=== PATIENT | female | born 1960 | race Hispanic/Latino ===

== ENCOUNTER 2016-08-29 16:49 | Emergency (ER) | payer SELFPAY ==
[2016-08-29 17:05] VITALS: BP 130/79
== END 2016-08-29 19:21 | disposition left against medical advice (07) ==
LOC: ED 16:49
DX: R11.10 Vomiting, unspecified (principal); Z53.21 Procedure and treatment not carried out due to patient leaving prior to being seen by health care provider

== ENCOUNTER 2017-02-19 09:19 | Outpatient (CLI) | payer OTHER ==
[2017-02-19] MEDS ORDERED: PROVENTIL IH ONE (09:26)
== END 2017-02-19 09:20 | disposition home or self-care (01) ==
LOC: PF 09:19
PROVIDERS: ATTEND Internal Medicine
DX: J44.9 Chronic obstructive pulmonary disease, unspecified (principal); I10 Essential (primary) hypertension; M51.36 Other intervertebral disc degeneration, lumbar region; F41.9 Anxiety disorder, unspecified; F32.9 Major depressive disorder, single episode, unspecified; R58 Hemorrhage, not elsewhere classified; F17.200 Nicotine dependence, unspecified, uncomplicated
CPT/HCPCS: 94060; 94640; 94729

== ENCOUNTER 2018-01-31 15:09 | Emergency (ER) | payer SELFPAY ==
--- NOTE | 2018-01-31 19:00 | Emergency Department Report ---
ED Extremity Problem HPI - General Chief complaint: Extremity Problem,Nontraumatic Stated complaint: RIGHT TOES SWELLING Time Seen by Provider: 01/31/18 18:55 Source: patient Mode of arrival: Ambulatory Limitations: No Limitations - History of Present Illness Initial comments: Patient is a 57-year-old female who is presenting with pain in her right toes. Patient states she has a history of a "blood clot". Patient has a history of taking Plavix but cannot afford it has been taking 81 mg aspirin a day. Patient states the pain in the right toes have been for approximately one week has been constant throbbing and a 6 out of 10 in severity. Patient denies any trauma. Patient seen a vascular surgeon in the past was not had surgery. - Related Data Home Medications Medication Instructions Recorded Confirmed Last Taken Citalopram [Celexa] 20 mg PO QDAY 05/15/13 12/25/13 12/25/13 Lisinopril/Hydrochlorothiazide 10 - 12.5 mg PO DAILY 05/15/13 12/25/13 12/25/13 [Zestoretic 10-12.5 mg] amLODIPine [Norvasc] 5 mg PO DAILY 05/15/13 12/25/13 12/25/13 ALPRAZolam [Xanax] 1 mg PO QHS 12/25/13 12/25/13 12/24/13 Albuterol Sulfate [Ventolin HFA] 2 puff IH Q4H PRN 12/25/13 12/25/13 12/25/13 Fluticasone/Salmeterol [Advair 1 puff IH DAILY 12/25/13 12/25/13 12/25/13 Diskus 250-50 mcg] Previous Rx's Medication Instructions Recorded Last Taken Type HYDROcodone/APAP 7.5-325 [[place] 1 each PO Q8HR PRN #20 tablet 08/08/13 12/25/13 Rx 7.5-325 mg TAB] traMADol [Ultram] 50 mg PO Q4HR PRN #20 tablet 12/25/13 Unknown Rx Prednisone [Prednisone 10 mg 10 mg PO .TAPER #1 tab.ds.pk 05/18/14 Unknown Rx (6-Day Pack, 21 Tabs)] Oxycodone HCl/Acetaminophen 1 each PO Q6HR PRN #7 tablet 08/11/14 Unknown Rx [Percocet 10-325 mg] Sulfamethoxazole/Trimethoprim 1 each PO BID #14 tablet 11/18/14 Unknown Rx [Bactrim Ds] hydrOXYzine HCL [Atarax] 25 mg PO Q6HR PRN #30 tablet 11/18/14 Unknown Rx methylPREDNISolone [Medrol Dose 8 mg PO QAM #1 tab.ds.pk 11/18/14 Unknown Rx Jose Alberto] traMADol [Ultram] 50 mg PO Q6HR PRN #12 tablet 01/31/18 Unknown Rx Allergies Allergy/AdvReac Type Severity Reaction Status Date / Time Penicillins Allergy Rash Verified 02/19/17 09:30 ED Review of Systems ROS: Stated complaint: RIGHT TOES SWELLING Other details as noted in HPI Comment: All other systems reviewed and negative ED Past Medical Hx - Past Medical History Hx Hypertension: Yes Hx Arthritis: Yes Hx Psychiatric Treatment: Yes (depression anxiety) Hx COPD: Yes Additional medical history: DDD. CHRONIC BRONCHITIS - Surgical History Hx Cholecystectomy: Yes Additional Surgical History: tubal ligation. arteriogram - Social History Smoking Status: Current Every Day Smoker - Medications Home Medications: Home Medications Medication Instructions Recorded Confirmed Last Taken Type Citalopram [Celexa] 20 mg PO QDAY 05/15/13 12/25/13 12/25/13 History Lisinopril/Hydrochlorothiazide 10 - 12.5 mg PO DAILY 05/15/13 12/25/13 12/25/13 History [Zestoretic 10-12.5 mg] amLODIPine [Norvasc] 5 mg PO DAILY 05/15/13 12/25/13 12/25/13 History HYDROcodone/APAP 7.5-325 [[place] 1 each PO Q8HR PRN #20 tablet 08/08/13 12/25/13 12/25/13 Rx 7.5-325 mg TAB] ALPRAZolam [Xanax] 1 mg PO QHS 12/25/13 12/25/13 12/24/13 History Albuterol Sulfate [Ventolin HFA] 2 puff IH Q4H PRN 12/25/13 12/25/13 12/25/13 History Fluticasone/Salmeterol [Advair 1 puff IH DAILY 12/25/13 12/25/13 12/25/13 History Diskus 250-50 mcg] traMADol [Ultram] 50 mg PO Q4HR PRN #20 tablet 12/25/13 Unknown Rx Prednisone [Prednisone 10 mg 10 mg PO .TAPER #1 tab.ds.pk 05/18/14 Unknown Rx (6-Day Pack, 21 Tabs)] Oxycodone HCl/Acetaminophen 1 each PO Q6HR PRN #7 tablet 08/11/14 Unknown Rx [Percocet 10-325 mg] Sulfamethoxazole/Trimethoprim 1 each PO BID #14 tablet 11/18/14 Unknown Rx [Bactrim Ds] hydrOXYzine HCL [Atarax] 25 mg PO Q6HR PRN #30 tablet 11/18/14 Unknown Rx methylPREDNISolone [Medrol Dose 8 mg PO QAM #1 tab.ds.pk 11/18/14 Unknown Rx Jose Alberto] traMADol [Ultram] 50 mg PO Q6HR PRN #12 tablet 01/31/18 Unknown Rx ED Physical Exam - General Limitations: No Limitations General appearance: alert, in no apparent distress - Head Head exam: Present: atraumatic, normocephalic - Eye Eye exam: Present: normal appearance - ENT ENT exam: Present: mucous membranes moist - Neck Neck exam: Present: normal inspection - Respiratory Respiratory exam: Present: normal lung sounds bilaterally. Absent: respiratory distress - Cardiovascular Cardiovascular Exam: Present: regular rate, normal rhythm. Absent: systolic murmur, diastolic murmur, rubs, gallop - GI/Abdominal GI/Abdominal exam: Present: soft, normal bowel sounds - Extremities Exam Extremities exam: Present: normal inspection, other (his bilateral toes show some small microvascular petechiae very mild on the dorsum of the bilateral distal foot and toes. The right small toe has a area of ecchymosis that is small and is tender consistent with a bruise. Patient has less than 2 second capillary refill. The dorsalis pedis pulse is present bilaterally. Patient's feet are warm and dry and not swollen.) - Back Exam Back exam: Present: normal inspection - Neurological Exam Neurological exam: Present: alert, oriented X3 - Psychiatric Psychiatric exam: Present: normal affect, normal mood - Skin Skin exam: Present: warm, dry, intact, normal color. Absent: rash ED Course Vital Signs 01/31/18 15:14 Pulse Rate 72 Respiratory 18 Rate Blood Pressure 122/72 O2 Sat by Pulse 95 Oximetry ED Medical Decision Making - Medical Decision Making Patient does appear to have some type of possible vascular condition however no major occlusion is suspected C she has bilateral palpable pulses in her bilateral feet are warm and the patient also has good capillary refill even in the area of the bruise on the right small toe. Patient is safe to follow up with vascular surgeon as an outpatient and will be discharged home with pain management. Critical care attestation.: If time is entered above; I have spent that time in minutes in the direct care of this critically ill patient, excluding procedure time. ED Disposition Clinical Impression: Toe pain Qualifiers: Laterality: right Qualified Code(s): M79.674 - Pain in right toe(s) Disposition: TO HOME OR SELFCARE Is pt being admited?: No Does the pt Need Aspirin: No Condition: Stable Additional Instructions: Patient please follow-up with vascular surgery. No major occlusive arterial disease is suspected today's seizure foot is warm with good pulses and good capillary refill. Also please take a full dose 325 mg aspirin daily Referrals: KEI HUERTA MD [Staff Physician] - 3-5 Days Time of Disposition: 19:01
[2018-01-31 19:23] VITALS: BP 124/75
== END 2018-01-31 19:22 | disposition home or self-care (01) ==
LOC: ED 15:09
DX: M79.674 Pain in right toe(s) (principal); I10 Essential (primary) hypertension; M19.90 Unspecified osteoarthritis, unspecified site; F41.9 Anxiety disorder, unspecified; J44.9 Chronic obstructive pulmonary disease, unspecified; F17.200 Nicotine dependence, unspecified, uncomplicated; Z98.51 Tubal ligation status; Z88.0 Allergy status to penicillin
CPT/HCPCS: 99282

== ENCOUNTER 2018-09-04 09:16 | Emergency (ER) | payer SELFPAY ==
[2018-09-04 09:25] VITALS: BP 110/71
[2018-09-04] MEDS ORDERED: DELTASONE PO ONE (09:30)
[2018-09-04] MEDS ORDERED: ATROVENT IH ONE (09:30)
[2018-09-04] MEDS ORDERED: PROVENTIL IH ONE (09:30)
--- NOTE | 2018-09-04 10:20 | Emergency Department Report ---
ED Shortness of Breath HPI - General Chief Complaint: Dyspnea/Respdistress Stated Complaint: SOB Time Seen by Provider: 09/04/18 09:30 Source: patient Mode of arrival: Ambulatory Limitations: No Limitations - History of Present Illness Initial Comments: Patient is a 58-year-old female with past history of COPD who is presenting with shortness of breath for the past 3-4 days. Patient states she is running out of her albuterol inhaler. Patient has a cough productive of clear sputum. Patient states that she has been wheezing and short of breath. Patient denies any nausea vomiting fevers chills at this time. - Related Data Home Medications Medication Instructions Recorded Confirmed Last Taken amLODIPine [Norvasc] 5 mg PO DAILY 05/15/13 06/24/18 06/19/18 Aspirin EC [Aspirin Enteric Coated 81 mg PO QDAY 06/19/18 06/24/18 06/19/18 TAB] Oxycodone HCl/Acetaminophen 10 mg PO Q6HR PRN 06/19/18 06/24/18 06/19/18 [Percocet 10/325 mg] Citalopram Hydrobromide [Celexa] 40 mg PO DAILY 06/24/18 06/24/18 Unknown Clopidogrel [Plavix] 75 mg PO QDAY 06/24/18 06/24/18 Unknown Celexa 40 mg PO QDAY 06/25/18 06/25/18 Unknown Previous Rx's Medication Instructions Recorded Last Taken Type Ciprofloxacin HCl [Ciprofloxacin 500 mg PO Q12H #12 tab 06/19/18 Unknown Rx TAB] Ipratropium [Atrovent NEB] 0.5 mg IH Q8HRT #1 box 06/19/18 Unknown Rx ALPRAZolam [Xanax TAB] 2 mg PO QHS tablet 06/26/18 Unknown Rx metroNIDAZOLE [Flagyl TAB] 500 mg PO Q8HR #20 tablet 06/26/18 Unknown Rx ALBUTEROL NEB's [Proventil 0.083% 2.5 mg IH TID PRN #1 box 09/04/18 Unknown Rx NEBS] Prednisone [predniSONE 5 mg (6-Day 5 mg PO .TAPER #1 tab.ds.pk 09/04/18 Unknown Rx Pack, 21 Tabs)] traMADol [Ultram] 50 mg PO Q6HR PRN #12 tablet 09/04/18 Unknown Rx Allergies Allergy/AdvReac Type Severity Reaction Status Date / Time Penicillins Allergy Rash Verified 09/04/18 09:23 ED Review of Systems ROS: Stated complaint: SOB Other details as noted in HPI Comment: All other systems reviewed and negative ED Past Medical Hx - Past Medical History Hx Hypertension: Yes Hx Congestive Heart Failure: No Hx Diabetes: No Hx Arthritis: Yes Hx Psychiatric Treatment: Yes (depression anxiety) Hx Asthma: No Hx COPD: Yes Additional medical history: DDD. CHRONIC BRONCHITIS. blood clots - Surgical History Hx Cholecystectomy: Yes Additional Surgical History: tubal ligation. arteriogram - Social History Smoking Status: Current Every Day Smoker Substance Use Type: Other - Medications Home Medications: Home Medications Medication Instructions Recorded Confirmed Last Taken Type amLODIPine [Norvasc] 5 mg PO DAILY 05/15/13 06/24/18 06/19/18 History Aspirin EC [Aspirin Enteric Coated 81 mg PO QDAY 06/19/18 06/24/18 06/19/18 History TAB] Ciprofloxacin HCl [Ciprofloxacin 500 mg PO Q12H #12 tab 06/19/18 06/24/18 Unknown Rx TAB] Ipratropium [Atrovent NEB] 0.5 mg IH Q8HRT #1 box 06/19/18 06/24/18 Unknown Rx Oxycodone HCl/Acetaminophen 10 mg PO Q6HR PRN 06/19/18 06/24/18 06/19/18 History [Percocet 10/325 mg] Citalopram Hydrobromide [Celexa] 40 mg PO DAILY 06/24/18 06/24/18 Unknown History Clopidogrel [Plavix] 75 mg PO QDAY 06/24/18 06/24/18 Unknown History Celexa 40 mg PO QDAY 06/25/18 06/25/18 Unknown History ALPRAZolam [Xanax TAB] 2 mg PO QHS tablet 06/26/18 Unknown Rx metroNIDAZOLE [Flagyl TAB] 500 mg PO Q8HR #20 tablet 06/26/18 Unknown Rx ALBUTEROL NEB's [Proventil 0.083% 2.5 mg IH TID PRN #1 box 09/04/18 Unknown Rx NEBS] Prednisone [predniSONE 5 mg (6-Day 5 mg PO .TAPER #1 tab.ds.pk 09/04/18 Unknown Rx Pack, 21 Tabs)] traMADol [Ultram] 50 mg PO Q6HR PRN #12 tablet 09/04/18 Unknown Rx ED Physical Exam - General Limitations: No Limitations General appearance: alert, in no apparent distress (speaking in full sentenses) - Head Head exam: Present: atraumatic, normocephalic - Eye Eye exam: Present: normal appearance, PERRL, EOMI - ENT ENT exam: Present: mucous membranes moist - Neck Neck exam: Present: normal inspection - Respiratory Respiratory exam: Present: wheezes. Absent: normal lung sounds bilaterally, respiratory distress, rales, rhonchi - Cardiovascular Cardiovascular Exam: Present: regular rate, normal rhythm. Absent: systolic murmur, diastolic murmur, rubs, gallop - GI/Abdominal GI/Abdominal exam: Present: soft, normal bowel sounds. Absent: distended, guarding, rebound - Extremities Exam Extremities exam: Present: normal inspection - Back Exam Back exam: Present: normal inspection - Neurological Exam Neurological exam: Present: alert, oriented X3 - Psychiatric Psychiatric exam: Present: normal affect, normal mood - Skin Skin exam: Present: warm, dry, intact, normal color. Absent: rash ED Course Vital Signs 09/04/18 09/04/18 09:23 09:38 Temperature 99.1 F Pulse Rate 81 Respiratory 22 17 Rate Blood Pressure 110/71 O2 Sat by Pulse 92 Oximetry - Reevaluation(s) Reevaluation #1: 09/04/18 10:19 Patient has diffuse wheeze. Patient started on a nebulizer treatment. of Albuterol and Atrovent ED Medical Decision Making - Medical Decision Making Patient is a 58-year-old female with COPD is out of her meds. The patient despite still wheezing does state she feels improved after some for nebulizer treatment has confused. Patient also states that she thinks she just needs her prescription in for her meds. Patient be discharged home at this time. Critical care attestation.: If time is entered above; I have spent that time in minutes in the direct care of this critically ill patient, excluding procedure time. ED Disposition Clinical Impression: COPD (chronic obstructive pulmonary disease) with acute bronchitis Disposition: DC- TO HOME OR SELFCARE Is pt being admited?: No Does the pt Need Aspirin: No Condition: Stable Instructions: Acute Bronchitis (ED), Chronic Obstructive Pulmonary Disease (ED) Referrals: [facility], [place] [Primary Care Provider] - 3-5 Days Time of Disposition: 11:35
== END 2018-09-04 11:54 | disposition home or self-care (01) ==
LOC: ED 09:16
DX: J44.0 Chronic obstructive pulmonary disease with (acute) lower respiratory infection (principal); M19.90 Unspecified osteoarthritis, unspecified site; F17.200 Nicotine dependence, unspecified, uncomplicated; I11.0 Hypertensive heart disease with heart failure; I50.9 Heart failure, unspecified; F32.9 Major depressive disorder, single episode, unspecified; F41.9 Anxiety disorder, unspecified; Z90.49 Acquired absence of other specified parts of digestive tract; Z98.51 Tubal ligation status; Z88.0 Allergy status to penicillin
CPT/HCPCS: 94640; 99282; J7512

== ENCOUNTER 2019-07-15 09:15 | Outpatient (CLI) | payer OTHER ==
[2019-07-15] MEDS ORDERED: ALBUTEROL 2.5 MG/3 ML NEBU IH ONE (09:57)
== END 2019-07-15 09:16 | disposition home or self-care (01) ==
LOC: PF 09:15
PROVIDERS: ATTEND Internal Medicine
DX: Z02.71 Encounter for disability determination (principal)
CPT/HCPCS: 94060; 94640; 94729